=== PATIENT | female | born 1950 | race Caucasian/White ===

== ENCOUNTER 2018-05-31 10:02 | Outpatient (CLI) | payer MEDICARE, BC, SELFPAY ==
[2018-05-31 10:44] LABS: Abs Immature Grans 0.01 k/cumm (0.0-0.09); Absolute Basophil Count 0.04 k/cumm (0.0-0.2); Absolute Eosinophil Count 0.06 k/cumm (0.0-0.7); Absolute Lymphocyte Count 0.81 k/cumm (1.2-3.4); Absolute Monocyte Count 0.11 k/cumm (0.11-0.7); Absolute Neutrophil Count 1.38 k/cumm (1.2-6.7); Basophils % 1.7; Eosinophils % 2.5; HCT 31.1 % (36.0-46.0); Immature Grans % 0.4; Lymphocytes % 33.6; Mean Corp. HGB Concentration 32.2 g/dL (32.0-36.0); Mean Corpuscular Hemoglobin 33.7 pg (27.0-33.0); Mean Corpuscular Volume 104.7 fL (80-95); Mean Platelet Volume 9.5 fL (8.0-11.0); Monocytes % 4.6; Neutrophils % 57.2; Platelet Count 123 x1000/uL (130-400); RBC 2.97 m/cumm (4.00-5.20); RBC Distribution Width 14.4 % (11.7-14.6); White Blood Cell Count 2.41 k/cumm (4.4-10.8)
[2018-05-31 11:00] LABS: ALT 40 U/L (12-78); AST 101 U/L (15-37); Albumin 3.1 g/dL (3.4-5.0); Alkaline Phosphatase 119 U/L (46-116); BUN 17 mg/dL (7-18); Bilirubin, Total 0.5 mg/dL (0.2-1.0); Chloride 105 mmol/L (98-107); Estimated GFR 45.09 (mL/min/1.73m2); Glucose 190 mg/dL (70-100); Potassium 4.3 mmol/L (3.5-5.1); Sodium 140 mmol/L (136-145)
[2018-05-31 11:05] LABS: Diff Comment Manual Differential; Polychromasia Present
[2018-06-01 17:34] LABS: Cancer Ag 15-3 1804 U/mL (<30)
== END 2018-05-31 10:22 ==
PROVIDERS: PCP Internal Medicine Sleep Medicine; Visit Provider Internal Medicine Hematology & Oncology
DX: C50.919 Malignant neoplasm of unspecified site of unspecified female breast (principal)
CPT/HCPCS: 36415; 80053; 86304; 83735; 85025; 86300

== ENCOUNTER 2018-07-12 00:10 | Outpatient (CLI) | payer MEDICARE, BC, SELFPAY ==
--- NOTE | 2018-07-12 10:28 | DI.CT_ITS ---
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 CHEST CT: There are bilateral breast implants, which appear intact. No adenopathy, pleural or pericardial effusions are seen. There is a stable 6 mm nodule in the right middle lobe. No new nodules are identified. There are innumerable lytic and blastic bony lesions. There is a severe compression fracture of T9, which appears stable. ABDOMEN AND PELVIS: The liver is again noted to have an extremely heterogeneous echotexture with innumerable low density metastases. Findings may be slightly more severe when compared with the previous exam. There is stable splenomegaly. A calcified gallstone is again noted. There is no gallbladder wall thickening. No adenopathy is seen in the abdomen or pelvis. The urinary bladder is empty. The uterus and ovaries are unremarkable. No acute bowel abnormalities are seen. Diffuse lytic and blastic bony lesions are again noted. IMPRESSION: Question of interval increase in hepatic metastases. Stable diffuse metastatic disease to the bones.
[2018-07-12] MEDS: Omnipaque 350 MG/ML 100 ML BTL IJ (10:53)
== END 2018-07-12 00:30 ==
PROVIDERS: PCP Internal Medicine; Visit Provider Internal Medicine Hematology & Oncology
DX: C50.919 Malignant neoplasm of unspecified site of unspecified female breast (principal); C79.51 Secondary malignant neoplasm of bone; R97.8 Other abnormal tumor markers; R91.1 Solitary pulmonary nodule; Z98.82 Breast implant status
CPT/HCPCS: 74177; 71260; J3490

== ENCOUNTER 2020-06-13 02:54 | Outpatient (RCR) | payer MEDICARE, BC, SELFPAY ==
[2020-06-13 09:25] LABS: Abs Immature Grans 0.02 10^3/uL (0.0-0.06); Absolute Basophil Count 0.01 10^3/uL (0.0-0.2); Absolute Eosinophil Count 0.12 10^3/uL (0.0-0.7); Absolute Lymphocyte Count 1.02 10^3/uL (1.2-3.4); Absolute Monocyte Count 0.28 10^3/uL (0.1-0.8); Absolute Neutrophil Count 2.47 10^3/uL (1.2-6.7); Basophils % 0.3; Eosinophils % 3.1; HCT 33.5 % (36.0-46.0); Immature Grans % 0.5; MCH 33.4 pg (27.0-33.0); MCHC 32.8 % (32.0-36.0); MCV 101.8 fL (80-95); Monocytes % 7.1; Nucleated RBC 0 %; RBC 3.29 10^6/uL (3.93-5.22); RDW 15.5 % (11.7-14.6); RDW-SD 58.3 fL; WBC 3.92 10^3/uL (4.4-10.8)
[2020-06-13 09:39] LABS: ALT 30 U/L (14-59); AST 43 U/L (15-37); Albumin 3.6 g/dL (3.4-5.0); Alkaline Phosphatase 127 U/L (46-116); Anion Gap 4.6 mmol/L (3-11); BUN 20 mg/dL (7-18); Bilirubin, Total 0.8 mg/dL (0.2-1.0); CO2 28.4 mmol/L (21.0-32.0); CREATININE 0.82 mg/dL (0.55-1.02); Calcium 8.7 mg/dL (8.5-10.1); Chloride 108 mmol/L (98-107); Glucose 133 mg/dL (74-106); Potassium 4.3 mmol/L (3.5-5.1); Sodium 141 mmol/L (136-145); Total Protein 6.7 g/dL (6.4-8.2)
[2020-06-13 10:08] LABS: Platelet Count 52 10^3/uL (130-400)
[2020-06-13] MEDS: Normal Saline Flush 10 ML SYR IVP (10:40)
[2020-06-14 15:40] LABS: Cancer Ag 15-3 280 U/mL (<30)
== END 2020-07-12 23:59 | disposition home or self-care (01) ==
LOC: INF 02:54
PROVIDERS: PCP Internal Medicine; Visit Provider Internal Medicine Hematology & Oncology
DX: C50.919 Malignant neoplasm of unspecified site of unspecified female breast (principal); Z45.2 Encounter for adjustment and management of vascular access device
CPT/HCPCS: 36591; 80053; 86304; 85025; 86300